=== PATIENT | male | born 1965 | race Caucasian/White ===

== ENCOUNTER 2021-05-30 11:02 | Inpatient (IN) | payer OTHER ==
[~2021-05-30] VITALS: Ht 170.2 cm; Wt 84.7 kg
[2021-05-30 11:08] VITALS: BP 119/78
[2021-05-30 12:04] LABS: ABSOLUTE NEUTROPHILS 2.8 thou/uL (1.4-8.2); BASOPHILS 0.5 % (0.0-2.0); EOSINOPHILS 0.5 % (0.0-3.0); HEMATOCRIT 31.9 % (42.0-52.0); HEMOGLOBIN 11.1 gm/dL (14.0-18.0); LYMPHOCYTES 25.4 % (24.0-44.0); MCH 32.7 pg (26.0-34.0); MCHC 34.8 g/dL (28.0-37.0); MCV 93.9 fL (80.0-100.0); MONOCYTES 11.9 % (1.0-8.0); PLATELET COUNT 122 thou/uL (150-400); POLYS 61.7 % (36.0-66.0); RDW 12.9 % (10.5-14.5); WBC 4.5 thou/uL (4.0-11.0)
[2021-05-30 12:10] LABS: CALCIUM 8.9 mg/dL (8.5-10.1); CREATININE 1.1 mg/dL (0.7-1.3); POTASSIUM 4.6 mmol/L (3.5-5.1)
[2021-05-30 12:19] LABS: MAGNESIUM 1.7 mg/dL (1.8-2.4)
[2021-05-30] MEDS ORDERED: ESCITALOPRAM OX20 MG PO (15:38)
[2021-05-30] MEDS ORDERED: TEMAZEPAM15 MG PO (15:38)
[2021-05-30] MEDS ORDERED: FOLIC ACID1 MG PO (15:38)
[2021-05-30] MEDS ORDERED: LISINOPRIL30 MG PO (15:38)
[2021-05-30 16:08] LABS: ALBUMIN 4.1 g/dL (3.4-5.0); DIRECT BILIRUBIN 0.3 mg/dL (<0.1-0.2); TOTAL BILIRUBIN 0.9 mg/dL (0.2-1.0)
[2021-05-30 18:12] LABS: FOLIC ACID 55.1 ng/mL (8.6-58.9)
[2021-05-30 18:33] LABS: % SATURATION 41 % (20-39); IRON 121 ug/dL (65-175); TIBC 295 ug/dL (250-450)
[2021-05-31 05:11] LABS: ABSOLUTE NEUTROPHILS 1.8 thou/uL (1.4-8.2); BASOPHILS 0.4 % (0.0-2.0); CALCIUM 8.9 mg/dL (8.5-10.1); CREATININE 1.1 mg/dL (0.7-1.3); EOSINOPHILS 1.2 % (0.0-3.0); HEMATOCRIT 28.6 % (42.0-52.0); HEMOGLOBIN 10.2 gm/dL (14.0-18.0); LYMPHOCYTES 35.1 % (24.0-44.0); MAGNESIUM 2.3 mg/dL (1.8-2.4); MCH 33.7 pg (26.0-34.0); MCHC 35.6 g/dL (28.0-37.0); MCV 94.7 fL (80.0-100.0); MONOCYTES 12.5 % (1.0-8.0); PLATELET COUNT 107 thou/uL (150-400); POLYS 50.8 % (36.0-66.0); POTASSIUM 4.4 mmol/L (3.5-5.1); RBC 3.02 mil/uL (4.50-6.00); WBC 3.6 thou/uL (4.0-11.0)
--- NOTE | 2021-05-31 07:01 | NUR ---
faxed ED summary to Kassi.
--- NOTE | 2021-05-31 07:18 | NUR ---
TOOK OVER CARE FROM CANDY NICE AT THIS TIME
[2021-05-31 07:40] VITALS: BP 137/78
--- NOTE | 2021-05-31 09:22 | EKG ---
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
--- NOTE | 2021-05-31 09:47 | 2DMMODE ---
[facility] [place] [address] 2 D/M-MODE ECHOCARDIOGRAM Name: ANDREAS LIU Room #: 216-P ADM IN M.R.#: [id number] Admission: 05/30/21 Attend Phys: Ramiro Benitez MD Discharge: Date of : 63 Report #: [id number] THIS REPORT FOR: cc: Rigoberto Mendenhall MD, Brian G. MD Santiago, Patrick MD [facility] ~ APPROVED REPORT Study performed: 05/31/2021 08:55:01 EXAM: Comprehensive 2D, Doppler, and color-flow Echocardiogram Patient Location: Bedside Room #: 216 Status: routine BSA: 2.01 HR: 82 bpm BP: 137/78 mmHg Other Information Study Quality: Adequate Indications Near syncopal episode. 2D Dimensions RVDd: 34.02 mm IVSd: 12.44 (7-11mm) LVOT Diam: 22.27 (18-24mm) LVDd: 53.10 mm PWd: 10.59 (7-11mm) Ascending Ao: 33.93 (22-36mm) LVDs: 34.01 (25-40mm) Left Atrium: 31.84 (27-40mm) Aortic Root: 34.38 mm Volumes Left Atrial Volume (Systole) Single Plane 4CH: 26.80 mL Single Plane 2CH: 49.53 mL LA ESV Index: 20.00 mL/m2 Aortic Valve AoV Peak Kehinde.: 1.44 m/s AO Peak Gr.: 8.33 mmHg LVOT Max P.65 mmHg LVOT Max V: 1.19 m/s CLAUDIO Vmax: 3.21 cm2 [facility] [address] [place] [address] 2 D/M-MODE ECHOCARDIOGRAM Name: ANDREAS LIU Room #: 216-P ADM IN M.R.#: [id number] Admission: 05/30/21 Attend Phys: Ramiro Benitez MD Discharge: Date of : 63 Report #: [id number] Mitral Valve E/A Ratio: 0.6 MV Decel. Time: 186.02 ms MV E Max Kehinde.: 0.42 m/s MV A Kehinde.: 0.66 m/s MV PHT: 53.95 ms IVRT: 83.04 ms Pulmonary Valve PV Peak Kehinde.: 1.61 m/s PV Peak Gr.: 10.32 mmHg Tricuspid Valve RAP Estimate: 5.00 mmHg Left Ventricle The left ventricle is normal size. There is normal LV segmental wall motion. There is normal left ventricular wall thickness. Left ventricular systolic function is normal. LVEF is 60%. Mild diastolic dysfunction is present (impaired relaxation pattern). Right Ventricle The right ventricle is normal size. The right ventricular systolic function is normal. Atria The left atrium size is normal. The right atrium size is normal. Aortic Valve The aortic valve is normal in structure. No aortic regurgitation is present. There is no aortic valvular stenosis. Mitral Valve The mitral valve is normal in structure. There is no mitral valve regurgitation noted. No evidence of mitral valve stenosis. Tricuspid Valve The tricuspid valve is normal in structure. There is no tricuspid valve regurgitation noted. Unable to assess PA pressure. Pulmonic Valve The pulmonary valve is normal in structure. There is no pulmonic valvular regurgitation. Great Vessels The aortic root is normal in size. The ascending aorta is normal in [facility] [address] [place] [address] 2 D/M-MODE ECHOCARDIOGRAM Name: ANDREAS LIU Room #: 216-P ADM IN M.R.#: [id number] Admission: 05/30/21 Attend Phys: Ramiro Benitez MD Discharge: Date of : 63 Report #: [id number] size. IVC is normal in size and collapses >50% with inspiration. Pericardium There is no pericardial effusion. <Conclusion> Normal left ventricle size/wall thickness Ejection fraction 60% Grade 1 diastolic dysfunction Normal right ventricular size/function Normal atrial size Color-flow Doppler study was performed of the aortic/mitral/tricuspid/pulmonary valve Normal aortic/mitral valve structure and function No tricuspid valve insufficiency Normal aortic root size No pericardial effusion <ELECTRONICALLY SIGNED> By: Talat Romo MD, [facility] 05/31/21 0947 [id number] [id number] Talat Romo MD, FACC /INF
[2021-05-31 10:00] VITALS: BP 127/72
[2021-05-31 12:00] VITALS: BP 149/88
[2021-05-31 14:49] LABS: AMP/METHAMP Negative (Negative); BARBITURATES Negative (Negative); BENZODIAZEPINES Negative (Negative); COCAINE Negative (Negative); METHADONE Negative (Negative); OPIATES Negative (Negative); PCP Negative (Negative)
[2021-05-31 15:50] VITALS: BP 159/93
--- NOTE | 2021-05-31 18:10 | NUR ---
PT ADMITTED TO THE UNIT FROM THE ER. ORIENTED TO ROOM AND BEDSPACE. ASSESSMENT CHARTED - MEDS PER NOV - PT GIVEN LORAZEPAM 2MGS X 2 DOSES FOR ANXIOUSNESS - PT NOT PLEASANT WITH STAFF AT TIME - BEING CONFRONTATIONAL ABOUT CARE - AND NOT WANTING TO BE HERE. ATTEMPTED TO ANSWER ALL PATIENT QUESTIONS PRN. ORDERED FOR NS TO BE RESTARTED AT 80C - COMPLETED. PT UP THE BATHROOM WITH STBY ASSIST - URINE SENT TO THE LAB. PT WITH NO CO'S AT TH PRESENT TIME.
[2021-05-31 19:40] VITALS: BP 135/86
[2021-06-01 02:55] LABS: ALBUMIN 3.5 g/dL (3.4-5.0); CALCIUM 8.6 mg/dL (8.5-10.1); CREATININE 0.8 mg/dL (0.7-1.3); PHOSPHORUS 4.2 mg/dL (2.5-4.9); POTASSIUM 4.3 mmol/L (3.5-5.1)
[2021-06-01 04:34] VITALS: BP 116/87
[2021-06-01 07:59] VITALS: BP 157/102
[2021-06-01] MEDS ORDERED: CHLORDIAZEPOXID25 M1 PO (09:00)
[2021-06-01 14:16] VITALS: BP 157/102
[2021-06-01 14:23] VITALS: BP 157/102
--- NOTE | 2021-06-01 14:27 | NUR ---
Pt dcing home today via family car with his spouse. Pt was indep prior to admission. Lives in a home with 2 steps in and 12 inside. He was cleared by therapy. Ethol tx/comm resources provided on his dc instructions. The pt has insurance in place for f/u care and he has a pcp Dr. Rigoberto Mendenhall. No other cm interventions indicated.
== END 2021-06-01 15:15 | disposition home or self-care (01) | DRG 896 ==
LOC: ER 11:02 → EROBS 14:40 → 2N 14:40
PROVIDERS: Hospitalist; Nurse Practitioner; ADMIT Internal Medicine; ATTEND Internal Medicine
DX: F10.221 Alcohol dependence with intoxication delirium (principal); R65.11 Systemic inflammatory response syndrome (SIRS) of non-infectious origin with acute organ dysfunction; E87.1 Hypo-osmolality and hyponatremia; F10.231 Alcohol dependence with withdrawal delirium; I10 Essential (primary) hypertension; F17.220 Nicotine dependence, chewing tobacco, uncomplicated; D64.9 Anemia, unspecified; E83.42 Hypomagnesemia; R25.1 Tremor, unspecified; F41.1 Generalized anxiety disorder; L40.50 Arthropathic psoriasis, unspecified; Z71.6 Tobacco abuse counseling; Z71.41 Alcohol abuse counseling and surveillance of alcoholic; Z82.49 Family history of ischemic heart disease and other diseases of the circulatory system
CPT/HCPCS: 10081